=== PATIENT | male | born 1960 | race Caucasian/White ===

== ENCOUNTER 2017-01-09 02:51 | Emergency (ER) | payer BC, OTHER ==
[~2017-01-09] VITALS: Ht 167.6 cm; Wt 86.5 kg
[2017-01-09 02:58] VITALS: Ht 167.6 cm; Wt 86.5 kg
[2017-01-09] MEDS ORDERED: SOD CHLORIDE 0.9% 500 ML IV STA (03:16)
--- NOTE | 2017-01-09 03:38 | RADRPT ---
PROCEDURE: Chest. CLINICAL INDICATION: Chest pain. TECHNIQUE: Single frontal view of the chest was obtained. COMPARISON: None. FINDINGS: The cardiac silhouette is magnified. The aortic arch is unremarkable. There is no focal consolidat ion, vascular congestion or pleural effusion. There is no pneumothorax. IMPRESSION: No evidence for active cardiopulmonary disease. .Delta Biggs MD, MD Date Time Electronically viewed and signed by .Delta Biggs MD, on 01/09/2017 03:38 .T/
[2017-01-09] MEDS ORDERED: GLIM4TAB PO (03:55)
[2017-01-09] MEDS ORDERED: ASPI-664 PO (03:55)
[2017-01-09] MEDS ORDERED: METO-448 PO (03:55)
[2017-01-09] MEDS ORDERED: METF-480 PO (03:55)
[2017-01-09] MEDS ORDERED: ATOR80TA75 PO (03:57)
[2017-01-09] MEDS ORDERED: BENA5TAB2 PO (03:57)
--- NOTE | 2017-01-09 04:00 | RADRPT ---
PROCEDURE: CT brain without contrast. CLINICAL INDICATION: Headache. TECHNIQUE: CT scan of the brain was performed on a multi-detector high-resolution CT scanner. Co ntiguous axial images were obtained from the skull base to the vertex without intravenous contrast. Coronal and sagittal reformatted images were also obtained. Images were reviewed on the PACS works tation. One or more of the following dose reduction techniques were used: - Automated exposure control. - Adjustment of the mA and/or kV according to patient size. - Use of iterative reconstruction technique. Exam CTD/vol = 45.01 mGy. Total exam DLP = 720.23 mGy-cm. COMPARISON: None. FINDINGS: The ventricles and cortical sulci are prominent consistent with mild cerebral volume loss. There are no areas of abnormal attenuation within the brain parenchyma. There is no mass effect or midline sh ift. There is no intracranial hemorrhage or abnormal extra-axial collection. The calvarium is intact. There is no evidence of fracture. Visualized paranasal sinuses and mastoid air cells are clear. IMPRESSION: No acute intracranial abnormality identified. Mild cerebral volume loss. .Delta Biggs MD, Date Time Electronically viewed and signed by .Delta Biggs MD, MD on 01/09/2017 03:59 .T/
[2017-01-09 04:14] LABS: INR 0.98; PARTIAL THROMBOPLASTIN TIME 30.8 Sec (25.0-35.0)
[2017-01-09 04:29] LABS: BASOPHIL # 0.1 10^3/ul (0.0-0.1); BASOPHILS % 0.6 % (0.0-2.0); EOSINOPHILS # 0.2 10^3/ul (0.0-0.5); EOSINOPHILS % 1.5 % (0.0-7.0); HEMATOCRIT 41.4 % (42.0-52.0); HEMOGLOBIN 13.8 g/dl (14.0-18.0); LYMPHOCYTES # 2.3 10^3/ul (0.8-2.9); LYMPHOCYTES % 22.1 % (15.0-51.0); MEAN CORPUSCULAR HEMOGLOBIN 28.2 pg (29.0-33.0); MEAN CORPUSCULAR HGB CONC 33.3 g/dl (32.0-37.0); MEAN CORPUSCULAR VOLUME 84.7 fl (82.0-101.0); MEAN PLATELET VOLUME 10.5 fl (7.4-10.4); MONOCYTE # 0.8 10^3/ul (0.3-0.9); NEUTROPHIL # 6.9 10^3/ul (1.6-7.5); NEUTROPHILS % 67.5 % (39.0-77.0); PLATELET COUNT 261 10^3/UL (140-415); RED BLOOD COUNT 4.89 10^6/ul (4.70-6.10); RED CELL DISTRIBUTION WIDTH 13.3 % (11.5-14.5); WHITE BLOOD COUNT 10.3 10^3/ul (4.8-10.8)
[2017-01-09 05:09] LABS: ANION GAP 22 (8-16); BLOOD UREA NITROGEN 18 mg/dl (7-20); CALCIUM 9.7 mg/dl (8.4-10.2); CARBON DIOXIDE 22 mmol/L (21-31); CHLORIDE 104 mmol/L (97-110); CREATININE 0.63 mg/dl (0.61-1.24); GLUCOSE 167 mg/dl (70-220); SODIUM 144 mmol/L (135-144)
--- NOTE | 2017-01-09 05:17 | ERD ---
ER Documentation Chief Complaint Date/Time DATE: 01/09/17 TIME: 05:16 Chief Complaint dizziness since 2 hours ago w/ htn HPI This is a very pleasant gentleman who comes in saying his disease who has a history of elevated blood pressures. He currently, denies any complaints after he took his blood pressure medication. Denies any fevers or chills. Denies any nausea vomiting. Denies any chest pain. Denies any palpitations. Denies any focal neurological complaints. Patient states he is generally compliant with his blood pressure medications ROS All systems reviewed and are negative except as per history of present illness. Medications Home Meds Reported Medications Atorvastatin* (Atorvastatin*) 80 Mg Tablet, 80 MG PO QHS, #30 TAB 01/09/17 Benazepril Hcl* (Benazepril Hcl*) 5 Mg Tablet, 5 MG PO DAILY, #30 TAB 01/09/17 Aspirin* (Aspirin* EC) 81 Mg Tablet.dr, 81 MG PO DAILY, TAB 01/09/17 Glimepiride* (Glimepiride*) 4 Mg Tablet, 4 MG PO WITH BREAKFAST DINNE, TAB 01/09/17 Metformin* (Glucophage*) 850 Mg Tablet, 850 MG PO Q12, #30 TAB 01/09/17 Metoprolol Tartrate* (Lopressor*) 25 Mg Tab, 25 MG PO BID, #60 TAB 01/09/17 Allergies Allergies: Coded Allergies: No Known Allergy (Unverified , 01/09/17) PMhx/Soc History of Surgery: Yes (STENTS) Anesthesia Reaction: No Hx Neurological Disorder: No Hx Respiratory Disorders: No Hx Cardiac Disorders: Yes (HTN, STENT PLACEMENT) Hx Psychiatric Problems: No Hx Miscellaneous Medical Probl: Yes (DM ) Hx Alcohol Use: Yes ([employer]) Hx Substance Use: No Hx Tobacco Use: No Smoking Status: Never smoker Physical Exam Vitals Vital Signs Date Time Temp Pulse Resp B/P Pulse Ox O2 Delivery O2 Flow Rate FiO2 01/09/17 03:40 92 129/87 01/09/17 03:35 87 133/74 01/09/17 03:30 82 125/78 01/09/17 03:27 87 18 133/74 97 Room Air Nasal Cannula 01/09/17 02:58 98.3 84 20 167/83 98 Physical Exam Const: [] Head: Atraumatic Eyes: Normal Conjunctiva ENT: Normal External Ears, Nose and Mouth. Neck: Full range of motion..~ No meningismus. Resp: Clear to auscultation bilaterally Cardio: Regular rate and rhythm, no murmurs Abd: Soft, non tender, non distended. Normal bowel sounds Skin: No petechiae or rashes Back: No midline or flank tenderness Ext: No cyanosis, or edema Neur: Awake and alert Psych: Normal Mood and Affect Result Diagram: 01/09/1733901/09/17339 Results 24 hrs Laboratory Tests Test 01/09/17 03:40 White Blood Count 10.310^3/ul Red Blood Count 4.8910^6/ul Hemoglobin 13.8g/dl Hematocrit 41.4% Mean Corpuscular Volume 84.7fl Mean Corpuscular Hemoglobin 28.2pg Mean Corpuscular Hemoglobin Concent 33.3g/dl Red Cell Distribution Width 13.3% Platelet Count 98244^3/UL Mean Platelet Volume 10.5fl Neutrophils % 67.5% Lymphocytes % 22.1% Monocytes % 8.0% Eosinophils % 1.5% Basophils % 0.6% Nucleated Red Blood Cells % 0.0/100WBC Neutrophils # 6.910^3/ul Lymphocytes # 2.310^3/ul Monocytes # 0.810^3/ul Eosinophils # 0.210^3/ul Basophils # 0.110^3/ul Nucleated Red Blood Cells # 0.010^3/ul Prothrombin Time 13.0Sec Prothrombin Time Ratio 1.0 INR International Normalized Ratio 0.98 Activated Partial Thromboplast Time 30.8Sec Sodium Level 144mmol/L Potassium Level 4.0mmol/L Chloride Level 104mmol/L Carbon Dioxide Level 22mmol/L Anion Gap 22 Blood Urea Nitrogen 18mg/dl Creatinine 0.63mg/dl Glucose Level 167mg/dl Calcium Level 9.7mg/dl Troponin I Pending Current Medications Medications (Trade) Dose Ordered Sig/Marlyn Route PRN Reason Start Time Stop Time Status Last Admin Dose Admin Sodium Chloride (NS) 500 ml @ 500 mls/hr Q1H STAT IV 01/09/17 03:16 01/09/17 04:15 DC 01/09/17 04:03 Procedures/MDM EKG: Rate/Rhythm: [Normal Sinus Rhythm] QRS, ST, T-waves: [No changes consistent w/ acute ischemia] Impression: [No evidence of ischemia or arrhythmia] Chest X-ray 1V Interpreted by me: Soft Tissue: No acute abnormalities Bones: No acute abnormalities Mediastinum/Cardiac Silhouette/Lungs: [No acute abnormalities] CT of the head as well as negative Patient's blood pressure was elevated (>120/80) but appears stable without evidence of hypertension emergency or urgency. The patient was counseled about the risks of hypertension and urged to pursue outpatient monitoring and therapy within a week with their primary care physician. Departure Diagnosis: Primary Impression: Dizziness Additional Impression: Accelerated hypertension Condition: Stable CATHERINE LAFLEUR Jan 09, 2017 05:17
[2017-01-09 05:25] LABS: TROPONIN-I < 0.012 ng/ml (0.00-0.12)
[2017-01-09 05:36] VITALS: BP 114/78; PULSE 84; RESP 21; TEMP 98.3
== END 2017-01-09 05:39 | disposition home or self-care (01) ==
LOC: E/R 02:51
DX: R42 Dizziness and giddiness (principal); I10 Essential (primary) hypertension; E11.9 Type 2 diabetes mellitus without complications; R07.9 Chest pain, unspecified; Z98.61 Coronary angioplasty status; Z79.84 Long term (current) use of oral hypoglycemic drugs; Z79.82 Long term (current) use of aspirin
CPT/HCPCS: 70450; 71010; 80048; 84484; 85025; 85610; 85730; 93005; J7040; 36415